=== PATIENT | female | born 1940 | race Caucasian/White ===

== ENCOUNTER → 2016-05-28 | Outpatient (CLI) | payer MEDICARE ==
--- NOTE | 2016-05-30 07:46 | MM ---
Reason for exam: screening (asymptomatic). Last mammogram was performed 1 year and 5 months ago. History: Patient is postmenopausal and is nulliparous. Family history of breast cancer in maternal cousin at age 30, breast cancer in maternal aunt at age 60, breast cancer in maternal aunt at age 40, and breast cancer in maternal aunt at age 30. Benign excisional biopsy of the left breast, 1989. Physical Findings: A clinical breast exam by your physician is recommended on an annual basis and results should be correlated with mammographic findings. MG Screening Mammo w CAD Bilateral CC and MLO view(s) were taken. Prior study comparison: January 09, 2015, bilateral MG 3d screening mammo w/cad. November 23, 2013, bilateral MG screening mammo w CAD. December 07, 2010, bilateral digital screening mammo w/CAD. There are scattered fibroglandular densities. No significant changes when compared with prior studies. ASSESSMENT: Negative, BI-RAD 1 RECOMMENDATION: Routine screening mammogram of both breasts in 1 year.
== END ==
LOC: RADMAMWWP 14:45
PROVIDERS: ATTEND Family Medicine
DX: Z12.31 Encounter for screening mammogram for malignant neoplasm of breast (principal)

== ENCOUNTER → 2017-10-07 | Outpatient (CLI) | payer MEDICARE ==
--- NOTE | 2017-10-08 08:54 | BD ---
EXAMINATION TYPE: Axial Bone Density DATE OF EXAM: 10/07/2017 CLINICAL HISTORY: Screening for osteoporosis, Z 13.820 Height: 4ft 10.5 inches Weight: 206 FRAX RISK QUESTIONS: Alcohol (3 or more units per day): no Family History (Parent hip fracture): no Glucocorticoids (More than 3mos): no (Ex: prednisone, prednisolone, methylprednisolone, dexamethasone, and hydrocortisone). History of Fracture in Adulthood: no Secondary Osteoporosis: 1. Type 1 Diabetes: no, type 2 2. Hyperthyroidism: no 3. Menopause before 45: hysterectomy age 41 4. Malnutrition: no 5. Chronic liver disease: no Rheumatoid Arthritis: no Current Tobacco Use: no RISK FACTORS HISTORY OF: Family History of Osteoporosis: no Active: yes Diet low in dairy products/other sources of calcium: no Postmenopausal woman: yes Take estrogen and/or progesterone medications: no Lost more than 2 inches in height since high school: patients states height at one time was 62 inches Frequent falls: no Poor Health: fair Hyperparathyroidism: no Adrenal Insufficiency: no MEDICATIONS: Prednisone or other steroids: no Thyroid Medications: no Osteoporosis Medications: no Additional Medications: drugs for type 2 diabetes ; drugs for arthritis Additional History: knee replacement; gastric surgery for weight loss EXAM MEASUREMENTS: Bone mineral densitometry was performed using the apprupt System. Bone mineral density as measured about the Lumbar spine is: ----- L1-L4(G/cm2): 0.908 T Score Values are as follows: ----- L2: -2.7 ----- L3: -2.7 ----- L4: -1.8 ----- L1-L4: 0-2.3 Bone mineral density has: Decreased -1.5% since study of: 11/23/2013 Bone mineral density about the R hip (g/cm2): 0.758 Bone mineral density about the L hip (g/cm2): 0.771 T Score values are as follows: -----R Neck: -2.0 -----L Neck: -1.9 -----R Total: -2.3 -----L Total: -1.9 Bone mineral density has: Decreased -1.5% since study of: 11/23/2013 IMPRESSION: Osteoporosis (T Score less than -2.5). There is increased fracture risk and therapy is usually indicated based on age. Re-Screen 1-2 years. Suspect underlying spinal curvature. NOTE: T-SCORE=SD OF THE YOUNG ADULT MEAN.
== END | disposition home or self-care (01) ==
LOC: RADBDWWP 13:06
PROVIDERS: ATTEND Family Medicine
DX: M81.0 Age-related osteoporosis without current pathological fracture (principal)
CPT/HCPCS: 77080

== ENCOUNTER 2021-11-09 07:23 | Emergency (ER) | payer MEDICARE ==
--- NOTE | 2021-11-09 08:32 | XR ---
EXAMINATION TYPE: XR KUB DATE OF EXAM: 11/09/2021 COMPARISON: NONE HISTORY: Abdominal pain TECHNIQUE: Upright KUB view of the abdomen is obtained with 2 radiographs. FINDINGS: Small bowel demonstrates no evidence for dilatation or air fluid levels. Gas and fecal material is seen in non-distended colon. No convincing evidence for pneumoperitoneum. No unusual calcifications. Cholecystectomy clips right upper quadrant. Suture material along the upper mid abdomen. The lung bases are clear. The osseous structures are intact. IMPRESSION: Overall nonobstructive bowel gas pattern.
--- NOTE | 2021-11-09 08:51 | ED ---
General Adult HPI - General Chief complaint: Abdominal Pain Stated complaint: Bowel issues Time Seen by Provider: 11/09/21 08:15 Source: patient, RN notes reviewed, old records reviewed Mode of arrival: ambulatory Limitations: no limitations - History of Present Illness Initial comments: This is an 80-year-old female who presents to the emergency department complaining of being constipated times a week. Patient states she's having some abdominal cramping but no consistent pain. Patient states when it she does have the cramping is on the left side. Patient states she has no consistent tenderness to palpation per patient denies any nausea vomiting. Patient states she doesn't have a long-standing history of constipation. Patient states last November she had a colonoscopy. Patient denies any fever chills. Patient denies any chest pain difficulty breathing. Patient denies any back pain. Patient states she's taken Metamucil and has no increased results. - Related Data Allergies Allergy/AdvReac Type Severity Reaction Status Date / Time cephalexin [From Keflex] Allergy Nausea & Verified 11/09/21 08:03 Vomiting codeine Allergy Nausea & Verified 11/09/21 08:03 Vomiting doxycycline Allergy Nausea & Verified 11/09/21 08:03 Vomiting imipramine [From Tofranil] Allergy Nausea & Verified 11/09/21 08:03 Vomiting levofloxacin [From Levaquin] Allergy Nausea & Verified 11/09/21 08:03 Vomiting methocarbamol [From Robaxin] Allergy Nausea & Verified 11/09/21 08:03 Vomiting Penicillins Allergy Nausea & Verified 11/09/21 08:03 Vomiting sulfamethoxazole Allergy Nausea & Verified 11/09/21 08:03 [From Bactrim] Vomiting trimethoprim [From Bactrim] Allergy Nausea & Verified 11/09/21 08:03 Vomiting Review of Systems ROS Statement: Those systems with pertinent positive or pertinent negative responses have been documented in the HPI. ROS Other: All systems not noted in ROS Statement are negative. Past Medical History Past Medical History: Diabetes Mellitus, Hypertension History of Any Multi-Drug Resistant Organisms: None Reported Past Surgical History: Cholecystectomy, Hysterectomy Additional Past Surgical History / Comment(s): Carpal tunnel Past Psychological History: No Psychological Hx Reported Smoking Status: Never smoker Past Alcohol Use History: None Reported Past Drug Use History: None Reported General Exam - General Exam Comments Initial Comments: GENERAL: Patient is well-developed and well-nourished. Patient is nontoxic and well- hydrated and is in mild distress. ENT: Neck is soft and supple. No significant lymphadenopathy is noted. Oropharynx is clear. Moist mucous membranes. Neck has full range of motion without eliciting any pain. EYES: The sclera were anicteric and conjunctiva were pink and moist. Extraocular movements were intact and pupils were equal round and reactive to light. Eyelids were unremarkable. PULMONARY: Unlabored respirations. Good breath sounds bilaterally. No audible rales rhonchi or wheezing was noted. CARDIOVASCULAR: There is a regular rate and rhythm without any murmurs gallops or rubs. ABDOMEN: Soft and nontender with normal bowel sounds. SKIN: Skin is clear with no lesions or rashes and otherwise unremarkable. NEUROLOGIC: Patient is alert and oriented x3. Cranial nerves II through XII are grossly intact. Motor and sensory are also intact. Normal speech, volume and content. Symmetrical smile. MUSCULOSKELETAL: Normal extremities with adequate strength and full range of motion. No lower extremity swelling or edema. No calf tenderness. LYMPHATICS: No significant lymphadenopathy is noted PSYCHIATRIC: Normal psychiatric evaluation. Limitations: no limitations Course Vital Signs 11/09/21 11/09/21 07:57 09:10 Temperature 98.3 F 97.8 F Pulse Rate 101 H 96 Respiratory 20 16 Rate Blood Pressure 187/96 155/78 O2 Sat by Pulse 98 99 Oximetry Medical Decision Making - Medical Decision Making Patient had to milk and molasses enemas in the emergency department with good results. Patient states she felt much better than when she came in. I reexamined the patient's abdomen and it was nontender Disposition Clinical Impression: Constipation Disposition: HOME SELF-CARE Condition: Good Instructions (If sedation given, give patient instructions): Constipation (ED), High Fiber Diet (ED) Is patient prescribed a controlled substance at d/c from ED?: No Referrals: Cassandra Franco MD [Primary Care Provider] - 1-2 days Time of Disposition: 10:40
[2021-11-09 09:12] VITALS: RESP 16
[2021-11-09 10:47] VITALS: BP 148/74; PULSE 68; TEMP 97.6
== END 2021-11-09 10:45 | disposition home or self-care (01) ==
LOC: EC 07:23
DX: K59.00 Constipation, unspecified (principal); E11.9 Type 2 diabetes mellitus without complications; I10 Essential (primary) hypertension; Z88.1 Allergy status to other antibiotic agents; Z88.5 Allergy status to narcotic agent; Z88.8 Allergy status to other drugs, medicaments and biological substances; Z88.0 Allergy status to penicillin; Z88.9 Allergy status to unspecified drugs, medicaments and biological substances; Z88.2 Allergy status to sulfonamides
CPT/HCPCS: 74018; 99283

== ENCOUNTER → 2023-03-17 | Outpatient (CLI) | payer MEDICARE ==
--- NOTE | 2023-03-17 13:05 | CT ---
EXAMINATION TYPE: CT lumbar spine wo con DATE OF EXAM: 03/17/2023 COMPARISON: None HISTORY: INTERVERTEBRAL DISC DISORDERS W RADICULOPATHY CT DLP: 1868 mGycm CONTRAST: None TECHNIQUE: CT of the lumbar spine is performed on a spiral scan at 3 mm thick sections. Reconstructed images are performed in the coronal and sagittal planes. FINDINGS: Note is made of a hiatal hernia. Gastric calcifications within the aorta. T12-L1: Vacuum disc phenomenon is present. Disc space narrowing is present. No focal disc herniation or disc bulge is evident. Neural foramen are patent. No spinal canal stenosis. L1-L2: No focal disc herniation or significant disc bulge is evident. No spinal canal stenosis or n eural foraminal stenosis is present L2-L3: No focal disc herniation or significant disc bulge is evident. No spinal canal stenosis or n eural foraminal stenosis is present L3-L4: Mild disc bulge is present with mild anterior thecal sac compression. Some ligamentum flavum l axity is present. This appears greater on the right. No spinal canal stenosis is present. L4-L5: No focal disc herniation or significant disc bulge. Some minimal disc phenomenon may be presen t. Facet degenerative changes are present. L5-S1: Vacuum disc phenomenon is present. No focal disc herniation or significant disc bulge. Minimal grade 1 spondylolisthesis is present. There is severe right and moderate left foraminal stenosis. Co rrelate with radicular symptoms. IMPRESSION: 1 severe right foraminal stenosis L5-S1. Correlate with radicular symptoms. 2. Grade 1 spondylolisthesis of L5 anteriorly on S1. 3. Mild disc bulge L3-4 with anterior thecal sac flattening. No stenosis.
== END | disposition home or self-care (01) ==
LOC: RADCTMAIN 12:23
PROVIDERS: ATTEND Family Medicine
DX: M51.16 Intervertebral disc disorders with radiculopathy, lumbar region (principal); R29.6 Repeated falls; G62.9 Polyneuropathy, unspecified
CPT/HCPCS: 72131

== ENCOUNTER → 2023-11-25 | Outpatient (CLI) | payer MEDICARE ==
--- NOTE | 2023-11-25 13:47 | CT ---
INDICATION: Patient age:Female; 83 years old; Reason for study: [facility] Protocol for left knee replacement, M17.12 UNI PRIM OSTEOARTHRITIS M25.562 L K NEE PAIN; [facility]. COMPARISON: None TECHNIQUE: Thin section axial CT imaging of the entire left lower extremity was performed per [facility] protocol, wit hout the administration of IV contrast. Additional axial images of the bilateral hips and ankles with other knee were also obtained. Reformatted images in coronal and sagittal views obtained. FINDINGS: There is no evidence of acute fracture or dislocation. The hips are grossly unremarkable. Degenerative changes of the bilateral SI joints, pubic symphysis, and of the visualized lower lumbar spine. Distal colonic diverticulosis. Uterus is surgically absent. The left knee demonstrates tricompartmental joint space narrowing with marginal spurring. No sizable joint effusion. Subchondral cystic changes most pronounced along the lateral tibiofemoral compartment . Diffuse soft tissue edema of the left lower extremity. The right ankle demonstrates tibiotalar subchondral cystic changes with joint space narrowing. Postsu rgical changes of the left ankle with multiple fixation screws identified. This creates streak artifa ct which limits evaluation. IMPRESSION: [facility] protocol for left knee joint replacement. [facility], , 11/25/2023 1:27 PM
== END | disposition home or self-care (01) ==
LOC: RADCTMAIN 12:14
PROVIDERS: ATTEND Orthopaedic Surgery
DX: M17.12 Unilateral primary osteoarthritis, left knee (principal); R60.0 Localized edema; K57.30 Diverticulosis of large intestine without perforation or abscess without bleeding

== ENCOUNTER 2024-06-02 10:06 | Day surgery (SDC) | payer MEDICARE ==
--- NOTE | 2024-06-02 08:45 | P.GSHP ---
History of Present Illness H&P Date: 06/02/24 CHIEF COMPLAINT: GI bleed HISTORY OF PRESENT ILLNESS: The patient is a 83-year-old female who presents with GI bleed including diverticulitis with possible fistula of the bladder Upper and lower endoscopy were offered for further evaluation and management. PAST MEDICAL HISTORY: Please see list. PAST SURGICAL HISTORY: Please see list. MEDICATIONS: Please see list. ALLERGIES: Please see list. SOCIAL HISTORY: No illicit drug use FAMILY HISTORY: No reports of Crohn disease or ulcerative colitis. REVIEW OF ORGAN SYSTEMS: CONSTITUTIONAL: No reports of fevers or chills. GI: Denies any blood in stools or constipation. PHYSICAL EXAM: VITAL SIGNS: Stable GENERAL: Well-developed pleasant in no acute distress. HEENT: No scleral icterus. Extraocular movements grossly intact. Moist buccal mucosa. NECK: Supple without lymphadenopathy. CHEST: Unlabored respirations. Equal bilateral excursions. CARDIOVASCULAR: Regular rate and rhythm. Distal 2+ pulses. ABDOMEN: Soft, nondistended. MUSCULOSKELETAL: No clubbing, cyanosis, or edema. ASSESSMENT: 1. GI bleed 2. Diverticulitis with bleeding PLAN: 1. Recommend proceeding with an upper and lower endoscopy Past Medical History Past Medical History: Diabetes Mellitus, Hypertension History of Any Multi-Drug Resistant Organisms: None Reported Past Surgical History: Cholecystectomy, Hysterectomy Additional Past Surgical History / Comment(s): Carpal tunnel Past Psychological History: No Psychological Hx Reported Smoking Status: Never smoker Past Alcohol Use History: None Reported Past Drug Use History: None Reported Medications and Allergies Allergies Allergy/AdvReac Type Severity Reaction Status Date / Time cephalexin [From Keflex] Allergy Nausea & Verified 11/09/21 08:03 Vomiting codeine Allergy Nausea & Verified 11/09/21 08:03 Vomiting doxycycline Allergy Nausea & Verified 11/09/21 08:03 Vomiting imipramine [From Tofranil] Allergy Nausea & Verified 11/09/21 08:03 Vomiting levofloxacin [From Levaquin] Allergy Nausea & Verified 11/09/21 08:03 Vomiting methocarbamol [From Robaxin] Allergy Nausea & Verified 11/09/21 08:03 Vomiting Penicillins Allergy Nausea & Verified 11/09/21 08:03 Vomiting sulfamethoxazole Allergy Nausea & Verified 11/09/21 08:03 [From Bactrim] Vomiting trimethoprim [From Bactrim] Allergy Nausea & Verified 11/09/21 08:03 Vomiting
[2024-06-02] MEDS: IV FLUID CONTINUATION 1,000 ML IV ONE ×2 (10:53→11:35)
[2024-06-02 10:56] VITALS: TEMP 98.6
[2024-06-02 11:06] LABS: Glucose,Whole Blood 146 mg/dL (70-110)
[2024-06-02] MEDS: LACTATED RINGERS 1,000 ML BAG IV STA (11:07)
[2024-06-02] MEDS ORDERED: PROPOFOL 10 MG/ML 20 ML VIAL IV ONE (11:38)
[2024-06-02] MEDS ORDERED: LIDOCAINE 1% INJ 10MG/ML (20 ML MDV) ONE (11:38)
--- NOTE | 2024-06-02 12:03 | P.PCN ---
Date of Procedure: 06/02/24 Description of Procedure: PREOPERATIVE DIAGNOSIS: Gastrointestinal bleed History of vertical banded gastroplasty Morbid obesity excess calories, BMI 32.2 POSTOPERATIVE DIAGNOSIS: Gastroesophageal reflux disease. Gastric gastric fistula Vertical banded gastroplasty Acute on chronic gastric ulcer, antrum Diaphragmatic hiatal hernia OPERATION: Esophagogastroduodenoscopy with cold forceps biopsies along esophagus, antrum and duodenum SURGEON: Yoli Tavera MD ANESTHESIA: MAC. INDICATIONS: The patient is a 83-year-old female who presents with history of vertical banded gastroplasty. Benefits and risks of the procedure were described. Informed consent was obtained. DESCRIPTION: The patient was brought into the endoscopy suite and laid in the left lateral decubitus position. An Olympus gastroscope was passed along the posterior oropharynx down to the distal esophagus where the squamocolumnar junction was encountered at 30 cm from the incisors. The stomach was entered and no bile reflux was found. Additional findings are listed below. Biopsies with cold forceps were obtained of the antrum. The first through third portion of the duodenum was examined. Retroflexion of the scope confirmed Hill grade 3 lower esophageal valve. The squamocolumnar junction demonstrated LA grade B erosive e sophagitis. The stomach was desufflated. The patient tolerated the procedure well. FINDINGS: Squamocolumnar junction 30 cm from the incisors. Diaphragmatic hiatus at 36 cm. Hiatal hernia, 6 cm Presence of gastric gastric fistula, 32 cm from incisors, 2 mm Acute on chronic gastric ulcer, antrum, multiple punctate, 4 -2 mm ulcers with active bleeding. Biopsies obtained Hill grade 2 lower esophageal valve. LA grade B erosive esophagitis. Biopsies obtained of the duodenum. Chronic gastritis with biopsies obtained. RECOMMENDATIONS: Recommend esophagram for anatomy of vertical banded gastroplasty and gastrogastric fistula Omeprazole 40 mg daily
[2024-06-02 12:26] VITALS: RESP 16
[2024-06-02 12:44] VITALS: BP 177/89; PULSE 83
--- NOTE | 2024-06-02 12:55 | P.PCN ---
Date of Procedure: 06/02/24 Description of Procedure: PREOPERATIVE DIAGNOSIS: Diverticulitis Colovesical fistula POSTOPERATIVE DIAGNOSIS: Severe sigmoid diverticulitis with partial obstruction OPERATION: Colonoscopy to the cecum, ileocecal valve and appendiceal orifice. SURGEON: Yoli Tavera MD. ANESTHESIA: MAC. INDICATIONS: The patient is a 83-year-old female who presents with stool in her bladder, recurrent urinary tract infection, GI bleed. Benefits and risks were described and informed consent was obtained. DESCRIPTION OF PROCEDURE: The patient had undergone Suprep. The patient had been brought into the operating room and laid in the left lateral decubitus position. After adequate intravenous sedation, the rectum was examined with 2% lidocaine jelly. No external hemorrhoids were encountered. The rectal tone was within normal limits. No lesions were palpated in the rectal vault. An Olympus colonoscope was advanced until the cecum, ileocecal valve and appendiceal orifice were clearly viewed. The prep was fair. Severe sigmoid diverticulosis with partial obstruction between 15 to 30 cm from the anal verge. No colonic polyps were found. No evidence of focal colitis was found. Retroflexion of the scope demonstrated grade 1 internal hemorrhoids without active bleeding or inflammation. The colon was desufflated. The patient had tolerated the procedure well. Withdrawal time was over 6 minutes. FINDINGS: Aronchick preparation quality scale 3(1-5) Internal hemorrhoids, grade 1 No external prolapsed hemorrhoids. No arteriovenous malformations. No adenomatous polyps. No focal colitis. Severe sigmoid diverticulosis with partial obstruction 15 to 30 cm from the anal verge RECOMMENDATIONS: 1. With her history of vertical banded gastroplasty, recommend augment nutritional support 2. May benefit from surgical invention with sigmoid colectomy for colovesical fistula Plan - Discharge Summary New Discharge Prescriptions: New Omeprazole [PriLOSEC] 40 mg PO DAILY #14 cap Continue lisinopriL [Zestril] 1 tab PO DAILY HYDROcodone/APAP 10-325MG [[place] 10-325] 1 tab PO BID Aspirin 1 tab PO DAILY Discharge Medication List Aspirin 1 tab PO DAILY 06/02/24 [History] HYDROcodone/APAP 10-325MG [Avenel 10-325] 1 tab PO BID 06/02/24 [History] Omeprazole [PriLOSEC] 40 mg PO DAILY #14 cap 06/02/24 [Rx] lisinopriL [Zestril] 1 tab PO DAILY 06/02/24 [History] Follow up Appointment(s)/Referral(s): Yoli Tavera MD [STAFF PHYSICIAN] - 06/15/24 2:30 pm Patient Instructions/Handouts: Peptic Ulcer (ED), Diverticulitis (DC) Discharge Disposition: HOME SELF-CARE
== END 2024-06-02 13:49 | disposition home or self-care (01) ==
LOC: ORWHC2ENDO 10:06
PROVIDERS: ATTEND Surgery Plastic and Reconstructive Surgery
DX: K29.61 Other gastritis with bleeding (principal); K21.9 Gastro-esophageal reflux disease without esophagitis; I10 Essential (primary) hypertension; E66.01 Morbid (severe) obesity due to excess calories; K25.7 Chronic gastric ulcer without hemorrhage or perforation; E11.9 Type 2 diabetes mellitus without complications; K31.6 Fistula of stomach and duodenum; K44.9 Diaphragmatic hernia without obstruction or gangrene; K57.33 Diverticulitis of large intestine without perforation or abscess with bleeding; N32.1 Vesicointestinal fistula; Z68.32 Body mass index [BMI] 32.0-32.9, adult; Z79.82 Long term (current) use of aspirin; Z79.899 Other long term (current) drug therapy; Z87.440 Personal history of urinary (tract) infections; Z88.0 Allergy status to penicillin; Z88.1 Allergy status to other antibiotic agents; Z90.710 Acquired absence of both cervix and uterus; Z90.49 Acquired absence of other specified parts of digestive tract; Z88.2 Allergy status to sulfonamides
CPT/HCPCS: 88305; 45378; 43239; J2003; J2704

== ENCOUNTER → 2024-06-02 | Outpatient (CLI) | payer MEDICARE ==
[2024-06-02 15:10] VITALS: BP 159/87; PULSE 83; RESP 16; TEMP 97.8
--- NOTE | 2024-06-02 15:25 | P.HPBAR ---
Bariatric H&P - History & Physicial H&P Date: 06/02/24 History & Physicial: Visit/CC: Patient initial contact: Initial weight: Initial weight in pounds: Height: 4 ft 10 in Initial BMI: Last weight: Current weight: 81.647 kg Current weight in pounds: Current BMI: [place] body weight (based on NIH guidelines): Excess body weight loss: The patient is a 83 year-old F who presents for Bariatric Assessment. She was 310 pounds. She lost 30 pounds on her own 6 month ago. EKG is abnormal. Need manager special events to manage kidney disease. Past Medical History Past Medical History: Diabetes Mellitus, Hypertension History of Any Multi-Drug Resistant Organisms: None Reported Past Surgical History: Bariatric Surgery, Cholecystectomy, Hysterectomy Additional Past Surgical History / Comment(s): Carpal tunnel, tummy tuck Smoking Status: Never smoker Surgical - Exam Vital Signs Temp Pulse Resp BP 97.8 F 83 16 159/87 06/02/24 15:01 06/02/24 15:01 06/02/24 15:01 06/02/24 15:01 Bariatric Checklist Checklist: Plan: Checklist: EGD: 1. Hiatal hernia: 2. H. Pylori: HgbA1c: Vitamin D: Smoking: Primary care physician referral: Psychiatry clearance: Cardiology clearance: Sleep study: Diet journal: VTE risk score: VTE risk level: Rehab needs at discharge:
[2024-06-02 15:47] LABS: INR 1.1 (<1.2); Partial Thromboplastin Time 24.5 sec (22.0-30.0); Prothrombin Time 11.7 sec (10.0-12.5)
[2024-06-02 18:08] LABS: HCT 41.7 % (37.2-46.3); HGB 13.2 g/dL (12.0-15.0); MCH 28.1 pg (27.0-32.0); MCHC 31.7 g/dL (32.0-37.0); MCV 88.9 FL (80.0-97.0); NRBC Per 100 WBC 0 X 10*3/uL (0.00-0.01); Platelet Count 316 X 10*3/uL (140-440); RBC 4.69 X 10*6/uL (4.10-5.20); RDW 13.8 % (11.5-14.5); WBC 9.28 X 10*3/uL (4.50-10.00)
[2024-06-02 18:51] LABS: % Iron Saturation 19.23 (12.00-45.00); ALT 12 U/L (8-44); AST 22 U/L (13-35); Albumin 4.1 g/dL (3.8-4.9); Albumin/Globulin Ratio 1.21 Ratio (1.60-3.17); Alkaline Phosphatase 128 U/L (41-126); Blood Urea Nitrogen 20.2 mg/dL (9.0-27.0); Calcium 10.4 mg/dL (8.7-10.3); Carbon Dioxide 24.2 mmol/L (21.6-31.8); Chloride 100 mmol/L (96-109); Chol/HDL Ratio 2.96 Ratio; Globulin 3.4 g/dL (1.6-3.3); Glucose 160 mg/dL (70-110); Iron 55 UG/DL (50-170); Magnesium 1.6 mg/dL (1.5-2.4); Phosphorus 3.1 mg/dL (2.4-5.1); Potassium 4.1 mmol/L (3.5-5.5); Sodium 139 mmol/L (135-145); Total Bilirubin 0.6 mg/dL (0.3-1.2); Total Iron Binding Capacity 286 UG/DL (228-460); Total Protein 7.5 g/dL (6.2-8.2)
[2024-06-02 19:45] LABS: Urine Alcohol Negative (Negative); Urine Barbiturate Negative (Negative); Urine Cocaine Negative (Negative); Urine Methadone Negative (Negative); Urine Opiates Negative (Negative); Urine Phencyclidine Negative (Negative)
[2024-06-02 21:38] LABS: Prealbumin 17.4 mg/dL (18.0-42.0)
[2024-06-03 12:49] LABS: Zinc, Serum 68 ug/dL (60-130)
[2024-06-05 03:17] LABS: Selenium 131 mcg/L (63-160)
[2024-06-05 09:02] LABS: Anabasine Urine <2.0 ng/mL (<2.0)
[2024-06-18 10:49] LABS: Vit B1(Thiamine) 69 ug/L (38-122)
== END | disposition home or self-care (01) ==
LOC: BARWHC3 14:29
PROVIDERS: ATTEND Surgery Plastic and Reconstructive Surgery
DX: E55.9 Vitamin D deficiency, unspecified (principal); E66.01 Morbid (severe) obesity due to excess calories; E44.0 Moderate protein-calorie malnutrition; E89.1 Postprocedural hypoinsulinemia; D50.8 Other iron deficiency anemias; K74.1 Hepatic sclerosis; N19 Unspecified kidney failure; K50.90 Crohn's disease, unspecified, without complications
CPT/HCPCS: 80053; 80061; 80306; 80323; 82525; 82607; 82728; 82746; 83540; 83550; 83735; 83970; 84100; 84134; 84255; 84425; 84443; 84590; 84630; 85027; 85610; 85730; 99212

== ENCOUNTER → 2024-08-11 | Outpatient (CLI) | payer MEDICARE ==
[2024-08-11 14:11] VITALS: BP 156/75; PULSE 56; RESP 16; TEMP 97.9; BMI 36.6
--- NOTE | 2024-08-11 14:37 | P.BASOAP ---
Subjective Progress Note Date: 08/11/24 She saw the appetizer packer. She has stage 3 kidney. No new medications. Labs. Her Hgb A1c is elevated 6.9% She was discontinued off her Sugar medications. Fluid asked is 64 oz. Bladder and colon, urologist ok. Labs ok. Needs to improve nutrition. She has been cleared by the shoddy mill worker. She is on ciprofloxacin again for UTI. She barely drink water at 32 oz. Has appointment with renal 08/30/24. She is drinking only 30 oz. Her family at bedside reports no support at home. She lives at home. She is not FIT. She wants surgery BRYON. She is seeking October for surgery. She needs nutritional help. She wants a colectomy. No bag. Her aunt is at bedside. Needs FU in September. Surgery planned for October. Objective - Vital Signs Vital signs: Vital Signs Temp 97.9 F 08/11/24 14:20 Pulse 56 L 08/11/24 14:20 Resp 16 08/11/24 14:20 BP 156/75 08/11/24 14:20 Pulse Ox FiO2 Intake & Output 08/10/24 08/11/24 08/11/24 18:59 06:59 18:59 Weight 79.379 kg Assessment/Plan Plan: Date: 08/11/24 Initial Weight: 81.647 kg Initial BMI: 37.6 Current Weight: 79.379 kg Current BMI: 36.6 Type of Surgery: Total Volume in Band: Previous Volume: Volume Removed: Volume Added: Band Size:
== END ==
LOC: BARWHC3 13:43
PROVIDERS: ATTEND Surgery Plastic and Reconstructive Surgery
DX: E66.01 Morbid (severe) obesity due to excess calories (principal); Z88.0 Allergy status to penicillin; Z88.2 Allergy status to sulfonamides; Z88.1 Allergy status to other antibiotic agents; Z88.5 Allergy status to narcotic agent; Z88.6 Allergy status to analgesic agent; Z88.8 Allergy status to other drugs, medicaments and biological substances; Z68.36 Body mass index [BMI] 36.0-36.9, adult
CPT/HCPCS: 99211